=== PATIENT | female | born 1940 | race Caucasian/White ===

== ENCOUNTER 2018-04-23 10:13 | Outpatient (CLI) | payer MEDICARE, OTHER, SELFPAY ==
[2018-04-23 12:55] LABS: Hemoglobin A1C 6.1 % (4.5-6.2)
[2018-04-23 13:01] LABS: ALT 68 U/L (12-78); AST 33 U/L (15-37); Albumin 4.1 g/dL (3.4-5.0); Alkaline Phosphatase 147 U/L (46-116); Anion Gap 9.1 mmol/L (3-11); BUN 17 mg/dL (7-18); Bilirubin, Total 0.7 mg/dL (0.2-1.0); CO2 28.9 mmol/L (21.0-32.0); CREATININE 1.02 mg/dL (0.55-1.02); Calcium 9.5 mg/dL (8.5-10.1); Chloride 102 mmol/L (98-107); Cholesterol 281 mg/dL (50-200); Estimated GFR 52.41 (mL/min/1.73m2); Glucose 103 mg/dL (70-100); HDL Cholesterol 69 mg/dL (40-60); LDL CHOLESTEROL 190 mg/dL (<100); Potassium 4.3 mmol/L (3.5-5.1); Sodium 140 mmol/L (136-145); Total Protein 7.3 g/dL (6.4-8.2); Triglyceride 117 mg/dL (30-150)
== END 2018-04-23 10:33 ==
PROVIDERS: PCP Family Medicine; Visit Provider Family Medicine
DX: E78.5 Hyperlipidemia, unspecified (principal); Z86.39 Personal history of other endocrine, nutritional and metabolic disease
CPT/HCPCS: 36415; 80053; 80061; 83721; 83036

== ENCOUNTER 2018-05-16 01:50 | Outpatient (CLI) | payer MEDICARE, SELFPAY ==
[2018-05-16 11:16] LABS: GGT 115 U/L (5-55)
== END 2018-05-16 02:10 ==
PROVIDERS: PCP Family Medicine; Visit Provider Family Medicine
DX: R74.8 Abnormal levels of other serum enzymes (principal)
CPT/HCPCS: 36415; 82977

== ENCOUNTER 2018-05-21 00:51 | Outpatient (CLI) | payer MEDICARE, SELFPAY ==
--- NOTE | 2018-05-21 07:51 | DI.US_ITS ---
SYMPTOMS/DIAGNOSIS: ELEVATED ALK PHOS AND GGT, PT ASYMPTOMATIC, R74.8 ABDOMINAL ULTRASOUND: The aorta and vena cava are normal. The liver is normal. The gallbladder is normal. There are no stones or ductal dilatation. The head and body of the pancreas are normal. The tail is not seen. The spleen is normal. The right kidney measures 9.5 x 5.2 x 3.7 cm and is unremarkable. The left kidney measures 10.7 x 6.1 x 5.3 cm and mild hydronephrosis is demonstrated. SUMMARY: Mild hydronephrosis involving the left kidney is demonstrated as noted above. The examination is otherwise unremarkable.
== END 2018-05-21 01:11 ==
PROVIDERS: PCP Family Medicine; Visit Provider Family Medicine
DX: N13.39 Other hydronephrosis (principal); R74.8 Abnormal levels of other serum enzymes
CPT/HCPCS: 76700

== ENCOUNTER 2018-05-28 01:59 | Outpatient (CLI) | payer MEDICARE, SELFPAY ==
[2018-05-28 13:10] LABS: ALT 35 U/L (12-78); AST 25 U/L (15-37); Alkaline Phosphatase 106 U/L (46-116); Bilirubin, Direct 0.12 mg/dL (0.00-0.20); Bilirubin, Total 0.5 mg/dL (0.2-1.0); Total Protein 7.1 g/dL (6.4-8.2)
[2018-05-28 13:21] LABS: Cholesterol 276 mg/dL (50-200); HDL Cholesterol 62 mg/dL (40-60); LDL CHOLESTEROL 188 mg/dL (<100); Triglyceride 188 mg/dL (30-150)
[2018-05-29 13:06] LABS: HBs Antibody, Qual Negative; HBs Antibody, Quant <3.1 mIU/mL; Hepatitis B Core Antibody Negative (NEGAT); Hepatitis B surface Ag Negative (NEGAT); Hepatitis C Ab w Rflx HCV PCR Negative (NEGAT)
== END 2018-05-28 02:19 ==
PROVIDERS: PCP Family Medicine; Visit Provider Family Medicine
DX: E78.5 Hyperlipidemia, unspecified (principal); R74.8 Abnormal levels of other serum enzymes
CPT/HCPCS: 36415; 80061; 80076; 83721; 86704; 86706; 86803; 87340

== ENCOUNTER 2018-05-29 00:47 | Outpatient (CLI) | payer MEDICARE, SELFPAY ==
--- NOTE | 2018-05-29 11:09 | DI.CT_ITS ---
SYMPTOM/DIAGNOSIS: MILD LT HYDRONEPHROSIS BY US, N13.[address]: CT examination of the abdomen and pelvis was performed without contrast administration. Images obtained through the lung bases are unremarkable. Liver and spleen appear normal by noncontrast criteria as does the pancreas. No gallbladder or biliary duct abnormality is seen. Abdominal aorta is of normal diameter. Small fat containing umbilical hernia noted. Small bilateral fat containing inguinal hernias noted. Small fat containing Bochdalek's hernia noted. Adrenals and kidneys appear normal. No urinary tract calcification or obstruction. No abdominal or pelvic adenopathy. Appendix appears normal. No evidence of diverticulitis or bowel obstruction. CONCLUSION: No evidence of urinary tract calcification or obstruction.
== END 2018-05-29 01:07 ==
PROVIDERS: PCP Family Medicine; Visit Provider Family Medicine
DX: N13.39 Other hydronephrosis (principal)
CPT/HCPCS: 74176

== ENCOUNTER 2019-04-22 07:06 | Outpatient (CLI) | payer MEDICARE, SELFPAY ==
[2019-04-22 09:37] LABS: ALT 61 U/L (14-59); Calculated LDL 184 mg/dL; Cholesterol 279 mg/dL (50-200); HDL Cholesterol 65 mg/dL (40-60); Triglyceride 153 mg/dL (30-150)
== END 2019-04-22 07:26 ==
PROVIDERS: PCP Family Medicine; Visit Provider Family Medicine
DX: E78.5 Hyperlipidemia, unspecified (principal)
CPT/HCPCS: 36415; 80061; 84460

== ENCOUNTER 2020-09-16 01:45 | Outpatient (CLI) | payer MEDICARE, SELFPAY ==
[2020-09-16 11:44] LABS: Hemoglobin A1C 6.2 % (<5.7)
[2020-09-16 12:12] LABS: Calculated LDL 141 mg/dL (<100); Cholesterol 226 mg/dL (<200); HDL Cholesterol 62 mg/dL (40-60); Triglyceride 118 mg/dL (<150)
== END 2020-09-16 01:46 | disposition home or self-care (01) ==
LOC: LBO 01:45
PROVIDERS: Nurse Practitioner Family; PCP Family Medicine; Visit Provider Family Medicine
DX: E78.5 Hyperlipidemia, unspecified (principal); R73.09 Other abnormal glucose; Z86.39 Personal history of other endocrine, nutritional and metabolic disease
CPT/HCPCS: 36415; 80061; 83036

== ENCOUNTER 2021-02-08 02:00 | Outpatient (CLI) | payer MEDICARE, SELFPAY ==
--- NOTE | 2021-02-08 09:58 | DI.RAD_ITS ---
Exam(s) XR KNEE LT 3V AP,LAT,MARGA EXAM: XR KNEE LT 3V AP,LAT,MARGA CLINICAL HISTORY: Coninued left knee pain,M25.562. TECHNIQUE: 2D digital imaging was performed. COMPARISON: No exams were available for comparison FINDINGS: [id number] degenerative changes are seen in the left knee characterized by joint space narrowin g and periarticular spurring. The findings are most marked in the medial femoral tibial joint space. There is chondrocalcinosis in the femoral tibial joint. No significant joint effusion. No acute f racture or dislocation. Atherosclerosis is present IMPRESSION: [id number] degenerative changes of the left knee. DATA REPOSITORY: RADIATION DOSE DELIVERED:
== END 2021-02-08 02:20 ==
PROVIDERS: PCP Nurse Practitioner Family; Visit Provider Nurse Practitioner Family
DX: M17.12 Unilateral primary osteoarthritis, left knee (principal)
CPT/HCPCS: 73562

== ENCOUNTER 2021-04-04 03:13 | Outpatient (CLI) | payer MEDICARE, SELFPAY ==
[2021-04-04 12:44] LABS: Iron 75 ug/dL (50-170); Total Iron Binding Capacity 324 ug/dL (250-450); Transferrin Sat 23 % (15-50)
[2021-04-04 12:47] LABS: Ferritin 160 ng/mL (8-252)
[2021-04-04 13:33] LABS: Hemoglobin A1C 5.9 % (<5.7)
[2021-04-05 09:20] LABS: Transferrin 245 mg/dL (201-352)
== END 2021-04-04 03:14 | disposition home or self-care (01) ==
PROVIDERS: PCP Nurse Practitioner Family; Visit Provider Nurse Practitioner Family
DX: R53.83 Other fatigue (principal); R73.03 Prediabetes; M25.562 Pain in left knee
CPT/HCPCS: 36415; 82728; 83036; 83540; 83550; 84466

== ENCOUNTER 2022-03-22 03:44 | Outpatient (CLI) | payer MEDICARE, SELFPAY ==
[2022-03-27 14:20] LABS: C1 Esterase Inhib, Functional 90 %of norm
== END 2022-03-22 03:45 | disposition home or self-care (01) ==
PROVIDERS: PCP Nurse Practitioner Family; Visit Provider Internal Medicine Gastroenterology
DX: K59.09 Other constipation (principal); R19.7 Diarrhea, unspecified; R10.9 Unspecified abdominal pain; G89.29 Other chronic pain; R11.10 Vomiting, unspecified
CPT/HCPCS: 36415; 82533; 83520; 86161

== ENCOUNTER 2022-04-28 17:28 | Outpatient (REF) | payer MEDICARE, SELFPAY ==
[2022-04-28 19:26] LABS: BUN 13 mg/dL (7-18); Estimated GFR 56.25 (mL/min/1.73m2)
== END 2022-04-28 17:29 | disposition home or self-care (01) ==
LOC: LBN 17:28
PROVIDERS: PCP Nurse Practitioner Family; Visit Provider Physician Assistant
DX: U07.1 COVID-19 (principal)
CPT/HCPCS: 84520; 82565

== ENCOUNTER 2023-01-28 03:07 | Outpatient (CLI) | payer MEDICARE, SELFPAY ==
[2023-01-28 12:51] LABS: Calculated LDL 156 mg/dL (<100); Cholesterol 239 mg/dL (<200); HDL Cholesterol 61 mg/dL (40-60); Triglyceride 112 mg/dL (<150)
== END 2023-01-28 03:08 | disposition home or self-care (01) ==
LOC: LOS 03:10
PROVIDERS: PCP Nurse Practitioner Family; Visit Provider Nurse Practitioner Family
DX: E78.5 Hyperlipidemia, unspecified (principal); R73.03 Prediabetes
CPT/HCPCS: 36415; 80061; 83036

== ENCOUNTER 2025-02-19 01:03 | Outpatient (CLI) | payer MEDICARE, SELFPAY ==
[2025-02-19 12:43] LABS: Hemoglobin A1C 5.8 % (<5.7)
[2025-02-19 13:37] LABS: Anion Gap 6.0 mmol/L (3-11); BUN 15 mg/dL (7-18); CO2 31.0 mmol/L (21.0-32.0); Calcium 9.8 mg/dL (8.5-10.1); Calculated LDL 142 mg/dL (<100); Chloride 104 mmol/L (98-107); Cholesterol 227 mg/dL (<200); Estimated GFR 62.65 (mL/min/1.73m2); Glucose 99 mg/dL (74-106); HDL Cholesterol 61 mg/dL (>or=50); Potassium 3.9 mmol/L (3.5-5.1); Sodium 141 mmol/L (136-145); Triglyceride 122 mg/dL (<150)
== END 2025-02-19 01:04 | disposition home or self-care (01) ==
LOC: LOS 01:03
PROVIDERS: PCP Nurse Practitioner Family; Visit Provider Nurse Practitioner Family
DX: Z13.1 Encounter for screening for diabetes mellitus (principal); Z13.6 Encounter for screening for cardiovascular disorders
CPT/HCPCS: 36415; 80048; 80061; 83036